=== PATIENT | female | born 2000 | race Caucasian/White ===

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

== ENCOUNTER 2025-04-20 09:02 | Outpatient (REF) | payer OTHER, SELFPAY ==
[2025-04-20 13:16] LABS: MANUAL DIFF FLAG NO
[2025-04-20 13:33] LABS: Hematocrit 37.8 % (37.0-47.0); Hemoglobin 13.0 g/dl (12.0-16.0); Imm Gran Abs Auto 0.02 X10*3/uL (0.00-0.03); Imm Gran Pct Auto 0.4 % (0.0-0.4); Lymphocytes Absolute Auto 1.4 X10*3/uL (1.2-4.9); Mean Corpuscular HGB Conc 34.4 g/dl (31.0-35.0); Mean Corpuscular Hemoglobin 25.2 pg (27.0-33.0); Mean Corpuscular Volume 73.3 fL (80.0-98.0); NRBC Abs Auto 0.000 X10*3/uL (0.0-0.012); NRBC Pct Auto 0.0 /100WBC (0.0-0.2); Platelet Count 190 X10*3/uL (160-400); Red Blood Count 5.16 X10*6/uL (4.20-5.50); White Blood Count 5.6 X10*3/uL (4.8-10.8)
[2025-04-20 14:19] LABS: Alanine Aminotransferase 18 U/L (0-31); Albumin Level 4.9 g/dL (3.5-5.0); Alkaline Phosphatase 59 U/L (39-117); Anion Gap 9 (12-20); Aspartate Amino Transferase 29 U/L (5-31); Blood Urea Nitrogen 9 mg/dL (9-16); Calcium 9.5 mg/dL (8.4-10.2); Carbon Dioxide 23 mmol/L (22-29); Chloride 110 mmol/L (96-108); Cholesterol 153 mg/dL (<200); Estimated Glomerular Filt Rate > 60; HDL Cholesterol 43 mg/dL (>40); Magnesium 2.1 mg/dL (1.6-2.6); Potassium 4.3 mmol/L (3.3-5.1); Sodium 138 mmol/L (135-145); Total Protein 7.7 g/dL (6.5-8.0); Triglycerides 60 mg/dL (<150)
[2025-04-20 14:34] LABS: Folate 9.8 ng/mL (> or = 4.0); Vitamin B12 584 pg/mL (200-900)
[2025-04-21 06:32] LABS: Syphilis Screen Nonreactive (Nonreactive)
[2025-04-21 07:01] LABS: HBS Num1 67.45 mIU/mL (0-7.99); HBsAGNum1 0.49 S/CO (0.00-0.99); HIV Num 1 0.06 S/CO (0.00-0.99); Hepatitis B Surface Antigen Negative (Negative); ~HepC Num1 0.15 S/CO (0.00-0.79); ~Hepatitis B Surface Antibody REACTIVE (Nonreactive); ~Hepatitis C Antibody Nonreactive (Nonreactive)
[2025-04-24 14:17] LABS: VITAMIN D (1,25 OH) D3 51 pg/mL; Vit D (1,25-Dihydroxy) Total 51 pg/mL (18-72); Vitamin D (1,25 OH) D2 <8 pg/mL
== END 2025-04-20 09:03 | disposition home or self-care (01) ==
LOC: HO.HKASLDS 09:02
PROVIDERS: PCP Student in an Organized Health Care Education/Training Program; Visit Provider Student in an Organized Health Care Education/Training Program
DX: Z13.9 Encounter for screening, unspecified (principal); F32.A Depression, unspecified; F41.9 Anxiety disorder, unspecified; J45.20 Mild intermittent asthma, uncomplicated; J03.91 Acute recurrent tonsillitis, unspecified; R10.20 Pelvic and perineal pain unspecified side; G47.9 Sleep disorder, unspecified; N92.6 Irregular menstruation, unspecified
CPT/HCPCS: 36415; 80053; 80061; 82607; 82652; 82746; 83036; 83735; 84443; 85025; 86706; 86780; 86803; 87340; 87389; 96127

== ENCOUNTER 2025-04-20 09:02 | Outpatient (AMB) | payer OTHER, SELFPAY ==
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
[2025-04-20 09:13] VITALS: BP 99/54; PULSE 100; RESP 20; TEMP 36.9; O2SAT 97; BMI 21.7
--- OUTSIDE RECORDS SUMMARY | 2025-04-20 09:35 | XMS_ITS | Encounter Summary ---
Author Organization [facility] Address [address] [place] [id number] Phone Care Team Providers Care Helicopter Pilot Instructor Name Role Phone Ginette Ivan MD Primary Care Provider [phone] Encounter Details Date Type Department Care Team ([facility] st Contact Info) Description 09/09/2011 Documentation [facility] Family Medicine [address] [place] [address] Family Medicine, Physician [address] [place], [place] [phone] Social History Tobacco Use Types Packs/Day Years Used Date Smoking Tobacco: Never Assessed Comments Unknown Sex and Gender Information Value Date Recorded Sex Assigned at Female 02/04/2020 11:03 AM EDT Legal Sex Female 5:11 PM EDT Gender Identity Female 02/04/2020 11:03 AM EDT Sexual Orientation Straight 02/04/2020 11 :03 AM EDT documented as of this encounter Plan of Treatment Not on file documented as of this encounter Visit Diagnoses Not on filedocumented in this encounter Care Teams Helicopter Pilot Instructor Relationship Specialty Start Date End Date Ginette Ivan MD [address] [place] [id number] PCP - General Pediatrics 10/15/18 10/15/23 documented as of this encounter
--- OUTSIDE RECORDS SUMMARY | 2025-04-20 09:35 | XMS_ITS | Encounter Summary ---
Author Organization [facility] Address [address] [place] [phone] Phone Care Team Providers Care No Bake Molder Name Role Phone Ginette Ivan MD Primary Care Provider [phone] Encounter Details Date Type Department Care Team ([facility] st Contact Info) Description 12/03/2013 Documentation [facility] Family Medicine [address] [place] [address] Family Medicine, Physician [address] [place], [place] [phone] Social History Tobacco Use Types Packs/Day Years [...] on filedocumented in this encounter Care Teams No Bake Molder Relationship Specialty Start Date End Date Ginette Ivan MD [address] [place] [id number] PCP - General Pediatrics 10/15/18 10/15/23 documented as of this encounter
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
--- OUTSIDE RECORDS SUMMARY | 2025-04-20 09:36 | XMS_ITS | Encounter Summary ---
Author Organization [facility] Address [address] [place] [address] Phone Care Team Providers Care Promotion Producer Name Role Phone Ginette Ivan MD Primary Care Provider [phone] Reason for Visit * Reason Comments Med Refill Encounter Details Date Type Department Care Team ([facility] Contact Info) Description 03/18/2020 Refill [facility] [address] [place] [address] Ginette Ivan MD [address] [place] [address] Chronic cough Social History Tobacco Use Types Packs/Day Years Used Date Smoking Tobacco: Never Smokeless Tobacco: Never Comments:Never smoker Alcohol Use Standard Drinks/Week Comments No 0 (1 standard drink = 0.6 oz pur e alcohol) Hunger/Food Answer Date Recorded In the last 12 months, did y ou or your family ever eat less than you felt you should because there wasn't enough money for food? No 02/04/2020 Stable Housing Answer Date Recorded Are you worried that in the next 2 months you may not have stable housing? No 02/04/2020 Transportation Concerns Answer Date Rec orded In the last 12 months, have you or your family ever had to go without healthcare because you didn't have a way to get there? No 02/04/2020 Hazards in Home Answer Date Recorded Think about the place you li ve. Do you have problems with any of the following? Pests (mice or roaches), mold, no/not working smoke detectors, water leaks, no window guards. No 2019 Financing Utilities Answer Date Recorde d In the last 12 months, has t he electric, gas, oil, or water company threatened to shut off your services in your home? No 02/04/2020 Safety at Home Answer Date Recorded Are you or your family worried about feeling saf e in your home? No 02/04/2020 Outside Support Answer Date Recorded Do you feel that you need mo re support from other people or programs to help you care for yourself or your family? No 02/04/2020 Understanding Health Concerns Answer Da te Recorded Do you need help understandi ng your or your child's healthcare needs (diagnosis, medications, plan, etc.)? No 02/04/2020 Financing Health Concerns Answer Date R ecorded In the last 12 months, was t here a time when your child needed to see a doctor or get medications or supplies but could not because of cost? No 02/04/2020 Missing School or Work Answer Date Kevin rded Did you or your child miss s chool or work because of a health problem that could have been avoided? No 02/04/2020 Comments No Sex and Gender Information Value Date Recorded Sex Assigned at Female 02/04/2020 11:03 AM EDT Legal Sex Female 5:11 PM EDT Gender Identity Female 02/04/2020 11:03 AM EDT Sexual Orientation Straight 02/04/2020 11 :03 AM EDT documented as of this encounter Plan of Treatment Not on file documented as of this encounter Visit Diagnoses Diagnosis Chronic cough Cough documented in this encounter Care Teams Promotion Producer Relationship Specialty Start Date End Date Ginette Ivan MD [address] [place] [address] PCP - General Pediatrics 10/15/18 10/15/23 documented as of this encounter
--- OUTSIDE RECORDS SUMMARY | 2025-04-20 09:36 | XMS_ITS | Clinical Summary ---
Author Organization [facility] Address [address] [facility] [address] [place] [phone] Phone Care Team Providers Care Volleyball Commentator Name Role Phone Con Ivan Primary Care Provider Unavaila ble Immunizations Immunization Administration Dates Next Due COVID-19, Unspecified Formulation 05/04/2021, Influenza, Unspecified Formulation 04/02/2023, MMR 10/15/2006,06/29/2003 Tdap 07/14/2014 Varicella 10/15/2006,06/29/2003 Social History Tobacco Use Types Packs/Day Years Used Date Smoking Tobacco: Never Assessed Education Answer Date Recorded Are you interested in more education? Not on parker e 02/13/2023 Are you concerned about learning? Not on file 02/13/2023 No 02/13/2023 No 02/13/2023 Digital Access Answer Date Recorded No 02/13/2023 No 02/13/2023 Reliable internet access at home? Not on file 02/13/2023 Device with a working camera? Not on file Comments Unknown Sex and Gender Information Value Date Recorded Sex Assigned at Not on file Legal Sex Female 12:41 PM EDT Gender Identity Not on file Sexual Orientation Not on file Plan of Treatment Health Maintenance Due Date Last Done Comments DEPRESSION SCREENING 2014 SMOKING Hx and SMOKELESS TOBACCO SCREENING 2015 HPV VACCINES (1 - 3-dose series) 2017 CHLAMYDIA SCREENING 2018 MENINGOCOCCAL VACCINES (B) ( 1 of 2 - Standard) 2018 HEPATITIS C SCREENING 2020 HIV ONE-TIME SCREENING (18-6 5 YEARS) 2020 PAP SMEAR 2023 Adult Td,Tdap Booster 07/14/2024 07/14/2014 INFLUENZA VACCINE (#1) 2024 3, 03/21/2022 COVID-19 VACCINE (3 - 2024-2 6 season) 2025 05/04/2021, 04/06/2021 HEPATITIS A VACCINES Aged Out No long er eligible based on patient's age to complete this topic HIB VACCINES Aged Out No longer eligi ble based on patient's age to complete this topic MENINGOCOCCAL VACCINES (ACWY) Aged Out No longer eligible based on patient's age to complete this topic PNEUMOCOCCAL VACCINES (0-49 years) Aged Out No longer eligible b ased on patient's age to complete this topic Medical Devices Not on file Care Teams Volleyball Commentator Relationship Specialty Start Date End Date Con Ivan PCP - General 02/14/23 Additional Source Comments The information contained in this document represents components of the legal health record. It is not the complete legal health record.[facility]
--- OUTSIDE RECORDS SUMMARY | 2025-04-20 09:36 | XMS_ITS | Encounter Summary ---
Author Organization [facility] Address [address] [place] [address] Phone Care Team Providers Care Chief Learning Officer Name Role Phone Ginette Ivan MD Primary Care Provider [phone] Reason for Visit * Reason Comments Med Refill Encounter Details Date Type Department Care Team ([facility] Contact Info) Description 07/13/2020 Refill [facility] [address] [place] [address] Ginette Ivan MD [address] [place] [address] Vitamin D deficiency Social History Tobacco Use Types Packs/Day Years [...] AM EDT documented as of this encounter Miscellaneous Notes * Telephone Encounter - Soumya Barrera LPN - 09/05/2020 3:04 PM EDT I spokr to Ivette, she said she had COVID so was unable to get lab done. She said she will go this week * Telephone Encounter - Ginette Ivan MD - 07/13/2020 2:59 PM EST Thanks. I will write the Rx after I see her current Vit D level. * Telephone Encounter - Souyma Barrera LPN - 07/13/2020 12:10 PM EST I spoke to Ivette, she has not gone for the lab work yet, said she would next week/JOD * Telephone Encounter - Ginette Ivan MD - 07/13/2020 12:02 PM EST Did they have a lab draw at [facility] (vitamin D order was faxed there)? If so, please request result. Ifnot, please see if family can go do this. Please let me know. I will order the med once I hear thisplan (so please send back to me) as I'd prefer to wait to find out the lab result as it may change the plan. Please also ask if she is taking the vitamin D still. Thanks. MER, mom is [place] Islander speaking. * Telephone Encounter - Soumya Barrera LPN - 07/13/2020 7:16 AM EST Refill request for Vitamin D. Last PE 02/04/20/JOD documented in this encounter Plan of Treatment Not on file documented as of this encounter Visit Diagnoses Diagnosis Vitamin D deficiency documented in this encounter Care Teams Chief Learning Officer Relationship Specialty Start Date End Date Ginette Ivan MD [address] [place] [id number] PCP - General Pediatrics 10/15/18 10/15/23 documented as of this encounter
--- OUTSIDE RECORDS SUMMARY | 2025-04-20 09:36 | XMS_ITS | Encounter Summary ---
Author Organization [facility] Address [address] [place] [phone] Phone Care Team Providers Care Concentrator Operator Name Role Phone Ginette Ivan MD Primary Care Provider [phone] Encounter Details Date Type Department Care Team ([facility] Contact Info) Description 01/02/2017 Conversion Encounter [facility] [address] [place], [place] [id number] Social History Tobacco Use Types Packs/Day Years Used Date Smoking Tobacco: Never Comments:Never smoker Comments Unknown Sex and Gender Information Value [...] on filedocumented in this encounter Care Teams Concentrator Operator Relationship Specialty Start Date End Date Ginette Ivan MD [address] [place] [address] PCP - General Pediatrics 10/15/18 10/15/23 documented as of this encounter
--- OUTSIDE RECORDS SUMMARY | 2025-04-20 09:36 | XMS_ITS | Encounter Summary ---
Author Organization [facility] Address [address] [place] [address] Phone Care Team Providers Care Art Educator Name Role Phone Ginette Ivan MD Primary Care Provider Reason for Visit * Reason Comments Med Refill Encounter Details Date Type Department Care Team ([facility] Contact Info) Description 11/14/2022 Refill [facility] [address] [place], [place] [phone] Ginette Ivan MD [address] [place] [address] Anxiety and depression Social History Tobacco Use Types Packs/Day Years [...] encounter Miscellaneous Notes * Telephone Encounter - Ginette Ivan MD - 11/14/2022 5:37 PM EDT Very overdue for med check, will not order until this is scheduled. * Telephone Encounter - Ana Dhaliwal LPN - 11/14/2022 9:26 AM EDT Pharm requesting refill fluoxetine 20mg caps. Last PE 03/21/22 script last sent 08/13/22. Last med check no showed 10/15/22, call placed to pt to advise to r/s med check, no answer lm requesting call back. documented in this encounter Plan of Treatment Not on file documented as of this encounter Visit Diagnoses Diagnosis Anxiety and depression documented in this encounter Care Teams Art Educator Relationship Specialty Start Date End Date Ginette Ivan MD [address] [place] [id number] PCP - General Pediatrics 10/15/18 10/15/23 documented as of this encounter
--- OUTSIDE RECORDS SUMMARY | 2025-04-20 09:36 | XMS_ITS | Encounter Summary ---
Author Organization [facility] Address [address] [place] [phone] Phone Care Team Providers Care Payroll Clerk Name Role Phone Ginette Ivan MD Primary Care Provider [phone] Reason for Visit * Reason Comments Med Refill Encounter Details Date Type Department Care Team ([facility] Contact Info) Description 03/31/2019 Refill [facility] [address] [place] [address] Ginette Ivan MD [address] [place] [address] Chronic cough Social History Tobacco Use Types Packs/Day Years Used Date Smoking Tobacco: Never Smokeless Tobacco: Never Comments:Never smoker Alcohol Use Standard Drinks/Week Comments No 0 (1 standard drink = 0.6 oz pur e alcohol) Hunger/Food Answer Date Recorded No 10/15/2018 Stable Housing Answer Date Recorded 0 10/15/2018 Transportation Concerns Answer Date Rec orded No 10/15/2018 Hazards in Home Answer Date Recorded No 10/15/2018 Financing Utilities Answer Date Recorde d No 10/15/2018 Safety at Home Answer Date Recorded No 10/15/2018 Outside Support Answer Date Recorded No 10/15/2018 Understanding Health Concerns Answer Da te Recorded No 10/15/2018 Financing Health Concerns Answer Date R ecorded No 10/15/2018 Missing School or Work Answer Date Kevin rded No 10/15/2018 Comments Unknown Sex and Gender Information Value Date Recorded Sex Assigned at Female 02/04/2020 11:03 AM EDT Legal Sex Female 5:11 PM EDT Gender Identity Female 02/04/2020 11:03 AM EDT Sexual Orientation Straight 02/04/2020 11 :03 AM EDT documented as of this encounter Miscellaneous Notes * Telephone Encounter - Yenny Grier MD - 03/31/2019 12:58 PM EST Pt has not had flu vaccine yet, and 09/2018 [facility] RX had 1 refill, so is needing another already this implies overuse/need,so advise winter asthma check visit with spirometry with AR or with me? * Telephone Encounter - Raegan Mendoza LPN - 03/31/2019 11:41 AM EST Unable to leave message. Last PE 10/04 , last albuterol MDI 10/04. Needs refill of albuterol MDI documented in this encounter Plan of Treatment Not on file documented as of this encounter Visit Diagnoses Diagnosis Chronic cough Cough documented in this encounter Care Teams Payroll Clerk Relationship Specialty Start Date End Date Ginette Ivan MD [address] [place] [address] PCP - General Pediatrics 10/15/18 10/15/23 documented as of this encounter
== END 2025-04-20 09:41 | disposition home or self-care (01) ==
LOC: HO.HMCFMS 09:03
PROVIDERS: PCP Pediatrics; Visit Provider Student in an Organized Health Care Education/Training Program
DX: F32.A Depression, unspecified (principal); F41.9 Anxiety disorder, unspecified; J45.20 Mild intermittent asthma, uncomplicated; J03.91 Acute recurrent tonsillitis, unspecified; R10.20 Pelvic and perineal pain unspecified side; G47.9 Sleep disorder, unspecified; N92.6 Irregular menstruation, unspecified

== ENCOUNTER 2025-05-04 14:43 | Outpatient (AMB) | payer OTHER, SELFPAY ==
--- NOTE | 2025-05-04 14:50 | A.OFFPC_ITS ---
Vital Signs 05/04/25 14:54 Height 5 ft 0.5 in Weight 112 lb 2 oz BMI 21.5 BP 96/54 L Blood Pressure Location Lt brachial Position Sitting Respiration 17 Pulse 70 Pulse Source Pulse Oximeter Temp 98.1 F Temp Source Oral Pulse Oximetry (%) 97 Oxygen Delivery Method Room Air Intake Visit Reasons: 2 wk f/u Intake Note: Patient present for follow up. Outpatient Coordinator Required: No Accompanied by: Self / Same As Patient Allergies Seasonal Allergies Allergy (Mild, Verified 05/04/25 14:54) itchy nose Medication List - Last Reconciled 05/05/25 by Joshua Mcdonald MD ascorbic acid (vitamin C) 500 mg PO DAILY ferrous sulfate 325 mg PO DAILY Tobacco use date assessed: 04/20/25 Dental Screening Dental Screen Date: 04/20/25 HPI HPI Comments History of Present Illness Details History of Present Illness The patient is a 24 year old female presenting for a review of laboratory results and evaluation of vaginal discomfort. Anemia: The patient reports feeling tired all the time and suspected she was anemic. Associated symptoms include fatigue, dizziness, and feeling out of breath. Vaginal Discomfort: The patient reports a history of recurrent vaginal infections, including her first yeast infection in early February, followed by an episode of bacterial vaginosis (BV) for which she took antibiotics. The yeast infection has recurred, totaling three episodes in the last few months, characterized by itchiness. She also describes a new symptom of really bad sensitivity that started about a week before her period last month. The sensitivity is intermittent, occurs upon wiping, and is localized to the inside or opening of the vagina, not the external labia. She denies burning with urination or seeing any blood, and a self-examination revealed no visible abnormalities such as blisters. Medications: - History of taking antibiotics for bact erial vaginosis. Social History: - Sexual History: The patient is not rec ently sexually active but has had male partners in the past. Diagnostic Results: - Anemia: Present based on discussion an d plan to treat. - Sodium, Potassium: Normal. - Kidney function: Normal. - Random glucose: Normal. - Hemoglobin A1c: Normal, a non-diabetic and non-prediabetic range. - Calcium, Magnesium: Normal. - Liver function: Normal. - Cholesterol panel: Normal. - Vitamin B12: 584 (normal range 200-900 ). - Vitamin D: Normal. - Folate: Normal. - Thyroid function: Normal. - Infectious Disease Panel: Negative for syphilis, hepatitis B, hepatitis C, and HIV. Past Medical History - Anemia, with associated symptoms of fa tigue, dizziness, and dyspnea. - Recurrent vulvovaginal candidiasis (th ree episodes in recent months). - Bacterial vaginosis, treated with anti biotics. Health Maintenance - Screening for sexually transmitted inf ections reviewed, with negative results for syphilis, hepatitis B, hepatitis C, and HIV. - Plan to screen for chlamydia and gonor florence via urine sample. - Plan to schedule a Pap smear for cervi shahid cancer screening and further evaluation. [facility] Medical History (Updated 05/05/25 @ 06:51 by Joshua Mcdonald MD) Iron deficiency anemia Irregular menstruation, unspecified Sleep disturbance Pelvic pain Recurrent tonsillitis Mild intermittent asthma Anxiety Depression Family History Sister Bipolar 1 disorder Mother Bipolar 1 disorder Lupus (systemic lupus erythematosus) Paternal Grandfather Throat cancer Maternal Grandmother Diabetes Hypertension Asthma Other FH: mental illness Social History Housing: Apartment Alcohol intake: current Comment: ocasionally Patient Tobacco Use Status: Never used Tobacco e-Cigarette/Vaping Use: Never Used Second Hand Smoke Exposure: No Substance Use Type: Marijuana service: No Current occupational status: employed 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 1. Little interest or pleasure in doing things: not at all 2. Feeling down, depressed, or hopeless: several days 3. Trouble falling or staying asleep, or sleeping too much: more than half the days 4. Feeling tired or having little energy: more than half the days 5. Poor appetite or overeating: more than half the days 6. Feeling bad about yourself - or that you are a failure or have let yourself or your family down: nearly every day 7. Trouble concentrating on things, such as reading the newspaper or watching television: several days 8. Moving or speaking so slowly that other people could have noticed. Or the opposite - being so fidgety or restless that you have been moving around a lot more than usual: several days 9. Thoughts that you would be better off or of hurting yourself in some way: not at all Total score: 12 Depression Screening Interpretation: Positive Depression Screening Done: Yes 32415 - PHQ-9 Billing: Yes Source: Developed by Drs. Jose Alarcon, Edith Almaguer, Axel Stearns and colleagues, with an educational gabriela from [employer]. Thrive Questionnaire Date Thrive assessed: 04/13/25 I am a: Patient What is your living situation today?: I have a steady place to live Within the past 12 months, did the food you bought not last and you didn't have the money to get more?: Sometimes True Within the past 12 months, did you worry whether your food would run out before you got money to buy more?: Sometimes True Do you have trouble paying for medicines?: No Do you have trouble getting transportation to medical appointments?: No Do you have trouble paying your heating and electricity bill?: Yes Do you have trouble taking care of your child, family member or friend?: No Do you have trouble with day-to-day activities such as bathing, preparing meals, shopping, managing finances, etc.?: No Are you currently unemployed and looking for a job?: No Are you interested in more education?: Yes Please select the resources that you would like help with: None THRIVE Score: 3 AUDIT C Alcohol Use Questionnaire (AUDIT-C) 1. How often do you have a drink containing alcohol?: 2-4 times a month 2. How many drinks containing alcohol do you have on a typical day when you are drinking?: 1 or 2 3. How often do you have six or more drinks on one occasion?: Never Total Score: 2 VANESA-7 AMB Questionnaire VANESA-7 Date VANESA - 7 assessed: 04/20/25 Feeling nervous, anxious, or on edge: 2 = More than half the days Not being able to stop or control worryin = More than half the days Worrying too much about different things: 2 = More than half the days Trouble relaxin = More than half the days Being so restless that it is hard to sit still: 1 = Several days Becoming easily annoyed or irritable: 1 = Several days Feeling afraid as if something awful might happen: 3 = Nearly every day Total VANESA-7 score (0-4 normal; 5-9 mild; 10-14 moderate; 15-21 severe): 13 Source: Developed by Drs. Jose Alarcon, Edith Almaguer, Axel Stearns and colleagues, with an educational gabriela from [employer]. VANESA-7 Assessment Billing VANESA-7 Assessment Tool: VANESA-7 Assessment 02617 Review of Systems Narrative Review of Systems - Constitutional: Reports feeling tired all the time. - Neurological: Reports feeling dizzy. - Respiratory: Reports feeling out of breath. - Genitourinary: Reports vaginal discomfort, intermittent itchiness, and sensitivity when wiping. - She denies burning with urination. - Denies seeing any blood. - Dermatologic: Denies seeing any abnormal blisters on self-exam. 10-point ROS reviewed and negative except as noted in HPI Physical exam (Primary Care) Vital Signs: Last Vital Signs Temp 98.1 F 05/04/25 14:54 Pulse 70 05/04/25 14:54 Resp 17 05/04/25 14:54 BP 96/54 L 05/04/25 14:54 Pulse Ox 97 05/04/25 14:54 Oxygen Delivery Method Room Air 05/04/25 14:54 BMI result Body Mass Index 21.5 Tobacco/Smoking Status: Tobacco use Status Tobacco use date assessed 04/20/25 05/04/25 14:52 Patient Tobacco Use Status Never used Tobacco 05/04/25 14:52 e-Cigarette/Vaping Use Never Used 05/04/25 14:52 PHQ-9: PHQ-9 Score PHQ-9: Total score 12 05/04/25 14:52 Depression Screening Interpretation: Positive Thrive Assessment: Date of Thrive Assessment Date Thrive assessed 04/13/25 05/04/25 14:52 Narrative Physical Exam General: Well-appearing, in no acute distress. Vital signs: Within normal limits. HEENT: Normocephalic, atraumatic. PERRLA, EOMI. Conjunctiva clear, sclera anicteric. Oropharynx clear, mucous membranes moist. TMs intact bilaterally. Neck: Supple, no lymphadenopathy, no thyromegaly, no JVD or carotid bruits. Cardiovascular: RRR, normal S1/S2, no murmurs, rubs, or gallops. Peripheral pulses 2+ and symmetric. No edema. Respiratory: Lungs clear to auscultation bilaterally, no wheezes, rales, or rhonchi. Normal effort. Abdomen: Soft, non-tender, non-distended. Normoactive bowel sounds. No hepatosplenomegaly, no masses. MSK: Full range of motion, no joint swelling or deformity. Normal gait. Skin: Warm, dry, intact. No rashes, lesions, or pallor. Neuro: Alert and oriented x3. Cranial nerves II-XII intact. Strength 5/5 throughout. Sensation intact. Reflexes 2+ symmetric. Normal coordination and gait. Psych: Appropriate mood and affect. Normal judgment and insight. Coding Level of Care Code Est Pt Level 3 (10667) Add On Problem Visit Only Diagnoses Mild intermittent asthma J45.20 Iron deficiency anemia D50.9 Additional Codes VANESA-7 Assessment Billing - VANESA-7 Assessment Tool: VANESA-7 Assessment 95985 ([id number]) PHQ-9 - 37269 - PHQ-9 Billing: Yes ([id number]) Assessment & Plan Assessment & Plan (1) Mild intermittent asthma: Code(s): J45.20 - Mild intermittent asthma, uncomplicated Category: Medical (2) Iron deficiency anemia: Code(s): D50.9 - Iron deficiency anemia, unspecified Category: Medical Plan Consent Patient was informed and verbally consented to the use of an ambient scribe for clinic note documentation during this visit. Plan 1. Anemia - Prescribed ferrous sulfate 325 mg with vitamin C to address anemia. - Instructed the patient to take the medication one hour before or two hours after eating. - Counseled on potential side effects, including constipation and dark stools, and advised increasing water and fiber intake. 2. Vaginal Discomfort/Recurrent Infections - The patient will provide a urine sample today for urinalysis and testing for chlamydia and gonorrhea. - Plan to schedule a follow-up appointment for a Pap smear. - During the Pap smear visit, additional swab testing will be performed for further evaluation. Discussion Notes I reviewed the patient's lab results with her, explaining that her symptoms of fatigue, dizziness, and dyspnea are related to anemia. I discussed the plan to prescribe iron with vitamin C and provided instructions on administration as well as counseling on potential side effects like constipation and dark stools, recommending increased water and fiber intake. We reviewed her other normal lab results, including metabolic panels, vitamins, thyroid function, and negative screenings for syphilis, hep B, hep C, and HIV. We also discussed her history of recurrent yeast infections and new-onset vaginal sensitivity. We agreed on a plan to obtain a urine sample today to test for chlamydia, gonorrhea, and UTI, and to schedule a Pap smear where further testing via swabs can be performed. Patient Instructions - Take the prescribed iron with vitamin C. - You can take the iron one hour before breakfast or two hours after you eat. - This medication may cause constipation and make your stools dark, which is normal. - Drink plenty of water and increase fiber in your diet to help prevent constipation. - Please provide a urine sample today. - We will schedule an appointment for you to have a Pap smear. Medical Decision Making The patient is a 24-year-old female presenting with fatigue and vaginal discomfort. Her reported symptoms of fatigue, dizziness, and dyspnea correlate with lab findings of anemia. The plan is to initiate iron supplementation with ferrous sulfate and vitamin C to improve absorption and address her symptoms. Her genitourinary complaints include recurrent yeast infections, a history of BV, and new-onset internal vaginal sensitivity when wiping, which is intermittent. Given her history and symptoms, the differential includes persistent vaginitis, cervicitis, or other infectious etiologies. An initial workup will include a urine test for chlamydia, gonorrhea, and urinalysis. Further evaluation with a pelvic exam, Pap smear, and appropriate swabs is planned for a follow-up visit to make a definitive diagnosis. Total Time Statement 20 min Total time spent caring for the patient today includes pre-visit chart review, documentation, review of laboratory and diagnostic imaging results, medication reconciliation, medically necessary evaluation, counseling on diagnoses, care coordination, ordering appropriate tests and medications, review of tests performed by other providers, reporting test results to the patient, and communication with other healthcare providers. Medications: New ascorbic acid (vitamin C) 500 mg PO DAILY 90 tabs 0RF ferrous sulfate 325 mg PO DAILY 90 tabs 0RF
[2025-05-04 14:54] VITALS: BP 96/54; PULSE 70; RESP 17; TEMP 36.7; O2SAT 97; BMI 21.5
--- OUTSIDE RECORDS SUMMARY | 2025-05-04 19:40 | XMS_ITS | Encounter Summary ---
Author Organization [facility] Address [address] [place] [phone] Phone Care Team Providers Care Sales Counselor Name Role Phone Ginette Ivan MD Primary Care Provider [phone] Reason for Visit * Reason Comments Med Refill Encounter Details Date Type Department Care Team ([facility] Contact Info) Description 03/31/2019 Refill [facility] [address] [place] [address] Ginette Ivan MD [address] [place] [address] Chronic cough Social History Tobacco Use Types [...] Cough documented in this encounter Care Teams Sales Counselor Relationship Specialty Start Date End Date Ginette Ivan MD [address] [place] [address] PCP - General Pediatrics 10/15/18 10/15/23 documented as of this encounter
--- OUTSIDE RECORDS SUMMARY | 2025-05-04 19:40 | XMS_ITS | Encounter Summary ---
Author Organization [facility] Address [address] [place] [address] Phone Care Team Providers Care Solar Energy Systems Engineer Name Role Phone Ginette Ivan MD Primary Care Provider [phone] Encounter Details Date Type Department Care Team ([facility] Contact Info) Description 01/02/2017 Conversion Encounter [facility] [address] [place], [place] [id number] Social History Tobacco Use Types Packs/Day Years [...] on filedocumented in this encounter Care Teams Solar Energy Systems Engineer Relationship Specialty Start Date End Date Ginette Ivan MD [address] [place] [address] PCP - General Pediatrics 10/15/18 10/15/23 documented as of this encounter
--- OUTSIDE RECORDS SUMMARY | 2025-05-04 19:40 | XMS_ITS | Encounter Summary ---
Author Organization [facility] Address [address] [place] [address] Phone Care Team Providers Care Experiential Therapist Name Role Phone Ginette Ivan MD Primary Care Provider [phone] Encounter Details Date Type Department Care Team ([facility] st Contact Info) Description 12/03/2013 Documentation [facility] [place] [place] Family Medicine [address] [place] [address] Family Medicine, Physician [address] [place], [place] [id number] Social History Tobacco Use Types Packs/Day Years [...] on filedocumented in this encounter Care Teams Experiential Therapist Relationship Specialty Start Date End Date Ginette Ivan MD [address] [place] [address] PCP - General Pediatrics 10/15/18 10/15/23 documented as of this encounter
--- OUTSIDE RECORDS SUMMARY | 2025-05-04 19:40 | XMS_ITS | Encounter Summary ---
Author Organization [facility] Address [address] [place] [address] Phone Care Team Providers Care Supervisor Opening And Picking Name Role Phone Ginette Ivan MD Primary Care Provider [phone] Encounter Details Date Type Department Care Team ([facility] st Contact Info) Description 09/09/2011 Documentation [facility] [place] Family Medicine [address] [place] [address] Family Medicine, Physician [address] [place], [place] [id number] Social History Tobacco Use Types Packs/Day Years [...] on filedocumented in this encounter Care Teams Supervisor Opening And Picking Relationship Specialty Start Date End Date Ginette Ivan MD [address] [place] [address] PCP - General Pediatrics 10/15/18 10/15/23 documented as of this encounter
--- OUTSIDE RECORDS SUMMARY | 2025-05-04 19:41 | XMS_ITS | Encounter Summary ---
Author Organization [facility] Address [address] [place] [address] Phone Care Team Providers Care Manager Technical Name Role Phone Ginette Ivan MD Primary Care Provider [phone] Reason for Visit * Reason Comments Med Refill Encounter Details Date Type Department Care Team ([facility] Contact Info) Description 11/14/2022 Refill [facility] [address] [place], [place] [phone] Ginette Ivan MD [address] [place] [address] Anxiety and depression Social History Tobacco Use [...] depression documented in this encounter Care Teams Manager Technical Relationship Specialty Start Date End Date Ginette Ivan MD [address] [place] [address] PCP - General Pediatrics 10/15/18 10/15/23 documented as of this encounter
--- OUTSIDE RECORDS SUMMARY | 2025-05-04 19:41 | XMS_ITS | Encounter Summary ---
Author Organization [facility] Address [address] [place] [address] Phone Care Team Providers Care Breakfast Manager Name Role Phone Ginette Ivan MD Primary Care Provider [phone] Reason for Visit * Reason Comments Med Refill Encounter Details Date Type Department Care Team ([facility] Contact Info) Description 07/13/2020 Refill [facility] [address] [place] [address] Ginette Ivan MD [address] [place] [address] Vitamin D deficiency Social History Tobacco Use [...] Vit D level. * Telephone Encounter - Soumya Barrera LPN - 07/13/2020 12:10 PM EST I spoke to Ivette, she has not gone for the lab work yet, said she would next week/JOD * Telephone Encounter - Ginette Ivan MD - 07/13/2020 12:02 PM EST Did they have a lab draw at [facility] (vitamin D order was faxed there)? If [...] vitamin D still. Thanks. MER, mom is Hebrew speaking. * Telephone Encounter - Soumya Barrera LPN - 07/13/2020 7:16 AM EST Refill request for Vitamin D. Last PE 02/04/20/JOD documented in this encounter Plan of Treatment Not on file documented as of this encounter Visit Diagnoses Diagnosis Vitamin D deficiency documented in this encounter Care Teams Breakfast Manager Relationship Specialty Start Date End Date Ginette Ivan MD [address] [place] [address] PCP - General Pediatrics 10/15/18 10/15/23 documented as of this encounter
--- OUTSIDE RECORDS SUMMARY | 2025-05-04 19:41 | XMS_ITS | Clinical Summary ---
Author Organization [facility] Address [address] [place] [address] Phone Care Team Providers Care Baseball Glove Stuffer Name Role Phone Con Ivan Primary Care [...] Medical Devices Not on file Care Teams Baseball Glove Stuffer Relationship Specialty Start Date End Date Con Ivan PCP - General 02/14/23 Additional Source Comments The information contained in this document represents components of the legal health record. It is not the complete legal health record.[facility]
--- OUTSIDE RECORDS SUMMARY | 2025-05-04 19:41 | XMS_ITS | Clinical Summary ---
Author Organization [facility] Address [address] [place] [address] Phone Care Team Providers Care Oncology Consultant Name Role Phone Unavailable Primary Care Provider [...] 30mg. 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 Continue with Dr. Morfin, [facility]. I will repeat GAD7 and PHQ9 at [...] Has first appt with our [facility], Shelbie Lehman, PhD, tomorrow. She asked me about whether [...] had no symptoms, her mom was positive. Encounters Date Type Department Care Team Description 04/28/2025 Telephone [facility] - [address] [address] Mary Kate Plummer MD Medical Records from Last 3 Months Immunizations Immunization Administration Dates Next Due DTaP [...] Grandmother Diabetes Maternal Grandmother Asthma Mother Molly Rolando Fibromyalgia Mother Molly Rolando Lupus Mother Molly Rolando Relation Name Status Comments Father Maternal Grandmother Alive Mother Molly Rolando Alive Mother: Fibrom yalgia/sjogen's syndrome Other Family [...] Diabetes mellitus, No family history of *Sudden /AK under 55, No family history of Migraines [...] 07/14/2021, Additional history exists COVID-19 Vaccine (3 - 2024-2 6 season) 2025 05/04/2021, 04/06/2021 HIB [...] Additional history exists Procedures * Due to [facility] law, this organization might not be sharing sensitive test results. Procedure Name Priority Date/Time Associated Diagnosis Comments CHLAMYDIA AND GONORRHEA, AMPLIFIED Routine 03/21/2022 2:33 PM EDT Encounter for screening examination for chlamydial infection from Last 3 Months or Most Recently Relevant to Health Maintenance Results * Due to [place] law, this organization might not be sharing sensitive test results. * Chlamydia and Gonorrhoea, Amplified (03/21/2022 2:33 PM EDT) Chlamydia Trachomatis, DNA Probe NEGATIVE (NEG) [facility] Comment: No Chlamydia Trachomatis RNA detected in this patient's sample (REFERENCE RANGE/NORMAL VALUE: NOT DETECTED) Note: This test uses certified prosthetist/orthotist- mediated amplification method to detect rRNA from C. Trachomatis URINE GC AMP PROBE NEGATIVE (NEG) [facility] Comment: No Neisseria Gonorrhoeae RNA detected in this patient's sample (REFERENCE RANGE/NORMAL VALUE: NOT DETECTED) NOTE: This test uses certified prosthetist/orthotist-mediated amplification method to detect rRNA from N.Gonorrhoeae. [...] without risk of sexual abuse. Consult the [facility] if needed. Contact phone number . Therapeutic failure or success cannot be determined with the Aptima Combo2 assay since nucleic acid may persist following appropriate antimicrobial therapy. The Centers for Disease Control and Prevention (CDC) recommends confirmatory retesting using culture or a different nucleic acid amplification test when positive results occur, if indicated. Testing performed or reported by [facility], a Service of [facility], [address], [place] [address] José Luis Salmon MD, [employer] [facility]# [id number] Urine (Urine) 03/21/2022 2:3 3 PM EDT 03/22/2022 8:54 AM EDT us Ginette Ivan MD LAB MICROBIOLOGY - GENERAL OR DERABLES Final Result [facility] from Last 3 Months or Most Recently Relevant to Health Maintenance
--- OUTSIDE RECORDS SUMMARY | 2025-05-04 19:41 | XMS_ITS | Encounter Summary ---
Author Organization [facility] Address [address] [place] [address] Phone Care Team Providers Care Rock Dust Sprayer Name Role Phone Ginette Ivan MD Primary Care Provider [phone] Reason for Visit * Reason Comments Med Refill Encounter Details Date Type Department Care Team ([facility] Contact Info) Description 03/18/2020 Refill [facility] [address] [place] [address] Ginette Ivan MD [address] [place] [address] Chronic cough Social History Tobacco Use Types [...] Cough documented in this encounter Care Teams Rock Dust Sprayer Relationship Specialty Start Date End Date Ginette Ivan MD [address] [place] [address] PCP - General Pediatrics 10/15/18 10/15/23 documented as of this encounter
== END 2025-05-04 15:23 | disposition home or self-care (01) ==
LOC: HO.HMCFMS 14:44
PROVIDERS: PCP Student in an Organized Health Care Education/Training Program; Visit Provider Student in an Organized Health Care Education/Training Program
DX: J45.20 Mild intermittent asthma, uncomplicated (principal); D50.9 Iron deficiency anemia, unspecified

== ENCOUNTER → 2025-05-04 14:43 | Outpatient (BNVA) | payer OTHER, SELFPAY | PROVIDERS: PCP Student in an Organized Health Care Education/Training Program; Visit Provider Student in an Organized Health Care Education/Training Program | DX: J45.20 Mild intermittent asthma, uncomplicated (principal); D50.9 Iron deficiency anemia, unspecified | CPT/HCPCS: 96127 ==